=== PATIENT | male | born 1970 | race Caucasian/White ===

== ENCOUNTER 2024-02-29 02:19 | Emergency (ER) | payer SELFPAY ==
[~2024-02-29] VITALS: Ht 175.3 cm; Wt 73.0 kg
[2024-02-29 02:20] VITALS: O2SAT 99
[2024-02-29] MEDS: BACITRACIN ZINC OINT UDPKT TOP ONE (03:45)
[2024-02-29] MEDS: LIDOCAINE HCL/EPINEPHRINE 1%-EPI 1:100,000 20 ML VIAL INFIL ONE (03:45)
[2024-02-29 04:11] LABS: POTASSIUM 3.7 mEq/L (3.5-5.1)
[2024-02-29 04:13] LABS: CALCIUM 8.7 mg/dL (8.7-10.4)
[2024-02-29 04:15] VITALS: TEMP 98.3
[2024-02-29 04:17] LABS: CREATININE 1.6 mg/dL (0.6-1.3)
[2024-02-29 04:25] VITALS: BP 113/63; PULSE 80; RESP 16
[2024-02-29] MEDS: SODIUM CHLORIDE 0.9% 1,000 ML IV ONE (04:25)
[2024-02-29] MEDS: MORPHINE SULFATE 4 MG/ML INJ (FOR IV/IM USE) IV STA (04:25)
[2024-02-29] MEDS: ONDANSETRON HCL 4MG/2ML INJ IV STA (04:25)
[2024-02-29] MEDS ORDERED: CEPH500T MT (06:21)
[2024-02-29] MEDS ORDERED: IBUP-2029 MT (06:21)
[2024-02-29] MEDS: IOHEXOL-300 100 ML BOTTLE ONE (07:19)
== END 2024-02-29 07:21 | disposition home or self-care (01) ==
LOC: ER 02:26
DX: S01.01XA Laceration without foreign body of scalp, initial encounter (principal); S29.9XXA Unspecified injury of thorax, initial encounter; Y08.89XA Assault by other specified means, initial encounter; Y93.89 Activity, other specified; Y92.89 Other specified places as the place of occurrence of the external cause; Y99.8 Other external cause status
CPT/HCPCS: 80048; 86850; 86900; 86901; 36415; 71045; 70450; 71260; 72125; 74177; 96361; 96374; 96375; 99285; Q9967; J3490; J2405; J2270; J7030; Z7610 ×2